=== PATIENT | female | born 1970 ===

== ENCOUNTER 2018-03-25 15:00 | Emergency (ER) | payer OTHER ==
[2018-03-25] MEDS ORDERED: ZOFRAN ODT PO ONE (18:16)
[2018-03-25] MEDS ORDERED: TORADOL IM ONE (18:16)
--- NOTE | 2018-03-25 18:42 | Emergency Department Report ---
ED Headache HPI - General Chief Complaint: Headache Stated Complaint: MIGRAINS/HEADACHE Time Seen by Provider: 03/25/18 17:59 - History of Present Illness Initial Comments: Patient is a 47-year-old female who has a history of migraines and cluster headaches who states since this morning she was having progressively worsening headache.. Patient states that she has a history of migraines and feels similar to this. Patient states she is not the point where she is vomiting or having auras. The patient states the headache is a 6 out of 10 in severity. Patient's up to get something to correct a headache before got worse. Allergies/Adverse Reactions: Allergies No Known Allergies Allergy (Verified 12/23/14 14:48) Home Medications: Ambulatory Orders Venlafaxine [Effexor] 75 mg PO DAILY 07/02/16 cloNIDine [Catapres] 0.1 mg PO TID 07/02/16 lamoTRIgine [LaMICtal] 25 mg PO BID 07/02/16 traZODone [Desyrel] 100 mg PO QHS 07/02/16 Baclofen 20 mg PO Q8HR #12 tablet 03/25/18 Gabapentin [Neurontin] 100 mg PO TID #30 capsule 03/25/18 Ketorolac [Toradol] 10 mg PO Q6H PRN #12 tablet 03/25/18 Naproxen [Naprosyn] 500 mg PO Q12H #20 tablet 03/25/18 ED Review of Systems ROS: Stated complaint: MIGRAINS/HEADACHE Other details as noted in HPI Comment: All other systems reviewed and negative ED Past Medical Hx - Past Medical History Hx Hypertension: Yes Additional medical history: anxiety - Social History Smoking Status: Current Every Day Smoker Substance Use Type: None - Medications Home Medications: Home Medications Medication Instructions Recorded Confirmed Last Taken Type Venlafaxine [Effexor] 75 mg PO DAILY 07/02/16 07/03/16 Unknown History cloNIDine [Catapres] 0.1 mg PO TID 07/02/16 07/02/16 Unknown History lamoTRIgine [LaMICtal] 25 mg PO BID 07/02/16 07/02/16 Unknown History traZODone [Desyrel] 100 mg PO QHS 07/02/16 07/02/16 Unknown History Baclofen 20 mg PO Q8HR #12 tablet 03/25/18 Unknown Rx Gabapentin [Neurontin] 100 mg PO TID #30 capsule 03/25/18 Unknown Rx Ketorolac [Toradol] 10 mg PO Q6H PRN #12 tablet 03/25/18 Unknown Rx Naproxen [Naprosyn] 500 mg PO Q12H #20 tablet 03/25/18 Unknown Rx ED Physical Exam - General Limitations: No Limitations General appearance: alert, in no apparent distress - Head Head exam: Present: atraumatic, normocephalic - Eye Eye exam: Present: normal appearance - ENT ENT exam: Present: mucous membranes moist - Neck Neck exam: Present: normal inspection - Respiratory Respiratory exam: Present: normal lung sounds bilaterally. Absent: respiratory distress - Cardiovascular Cardiovascular Exam: Present: regular rate, normal rhythm. Absent: systolic murmur, diastolic murmur, rubs, gallop - GI/Abdominal GI/Abdominal exam: Present: soft, normal bowel sounds - Extremities Exam Extremities exam: Present: normal inspection - Back Exam Back exam: Present: normal inspection - Neurological Exam Neurological exam: Present: alert, oriented X3 - Psychiatric Psychiatric exam: Present: normal affect, normal mood - Skin Skin exam: Present: warm, dry, intact, normal color. Absent: rash ED Course Vital Signs 03/25/18 15:06 Temperature 98.2 F Pulse Rate 83 Respiratory 18 Rate Blood Pressure 132/81 O2 Sat by Pulse 97 Oximetry ED Medical Decision Making - Medical Decision Making Was given a shot of Toradol which she states normally helps patient be discharged home with naproxen gabapentin and baclofen which she states also helped with her headaches. Critical care attestation.: If time is entered above; I have spent that time in minutes in the direct care of this critically ill patient, excluding procedure time. ED Disposition Clinical Impression: Migraine Qualifiers: Migraine type: unspecified Status migrainosus presence: without status migrainosus Intractability: not intractable Qualified Code(s): G43.909 - Migraine, unspecified, not intractable, without status migrainosus Disposition: DC-01 TO HOME OR SELFCARE Is pt being admited?: No Does the pt Need Aspirin: No Condition: Stable Prescriptions: Baclofen 20 mg PO Q8HR #12 tablet Gabapentin [Neurontin] 100 mg PO TID #30 capsule Ketorolac [Toradol] 10 mg PO Q6H PRN #12 tablet PRN Reason: Pain Naproxen [Naprosyn] 500 mg PO Q12H #20 tablet Referrals: PRIMARY CARE, [Primary Care Provider] - 3-5 Days
[2018-03-25 18:49] VITALS: BP 136/72
== END 2018-03-25 18:48 | disposition home or self-care (01) ==
LOC: ED 15:00
DX: G43.909 Migraine, unspecified, not intractable, without status migrainosus (principal); F41.9 Anxiety disorder, unspecified; I10 Essential (primary) hypertension; F17.200 Nicotine dependence, unspecified, uncomplicated
CPT/HCPCS: 96372; 99282; J1885; Q0162